=== PATIENT | female | born 1930 | race Asian ===

== ENCOUNTER 2018-08-07 09:46 | Day surgery (SDC) | payer MEDICARE, OTHER ==
[~2018-08-07] VITALS: Ht 149.9 cm; Wt 48.2 kg
[~2018-08-07 09:46] MED LIST: AMIO200T5 PO; AMLO-511 PO; APIX2.5T PO; ASPI-1182 PO; METHI5 PO; RINGERS SOLUTION,LACTATED 500 ML IV ONE; TERA5CAP12 PO; VALS1TAB79 PO
[2018-08-07] MEDS ORDERED: HYALURONATE SOD/CHONDROITIN SOD 0.5 ML VIAL IO ONE (09:47)
[2018-08-07] MEDS ORDERED: TETRACAINE HCL VISCOUS 0.5% 0.6 ML OPHTHALMIC SOLUTION OS ONE (09:47)
[2018-08-07] MEDS ORDERED: LIDOCAINE/PF 1% 2 ML VIAL IM ONE (09:47)
[2018-08-07] MEDS ORDERED: TETRACAINE HCL/PF 0.5% 4 ML OPHTHALMIC SOLUTION OS ONE (09:47)
[2018-08-07] MEDS ORDERED: POVIDONE-IODINE 10% 15 ML SOLUTION UD TP ONE (09:47)
[2018-08-07] MEDS ORDERED: BALANCED SALT 15 ML OPHTHALMIC IRRIG.SOLN OS ONE (09:47)
[2018-08-07] MEDS ORDERED: MIDAZOLAM HCL 2 MG/2 ML VIAL IVP ONE (12:00)
[2018-08-07] MEDS ORDERED: FentaNYL CITRATE-PF 100 MCG/2 ML VIAL IVP ONE (12:00)
[2018-08-07] MEDS ORDERED: PrednisoLONE ACETATE 1% 5 ML OPHTHALMIC SUSPENSION OD ONE (12:15)
== END 2018-08-07 13:15 | disposition home or self-care (01) ==
LOC: SURGERY 09:46
PROVIDERS: ATTEND Ophthalmology Glaucoma Specialist
DX: H11 Other disorders of conjunctiva (principal); I10 Essential (primary) hypertension; E78.00 Pure hypercholesterolemia, unspecified; E07.9 Disorder of thyroid, unspecified; I48.91 Unspecified atrial fibrillation; Z96.1 Presence of intraocular lens; Z98.41 Cataract extraction status, right eye; Z98.42 Cataract extraction status, left eye; Z79.01 Long term (current) use of anticoagulants; Z79.82 Long term (current) use of aspirin; Z79.899 Other long term (current) drug therapy
CPT/HCPCS: 68135; 93005; J2250; J3010; J3490; J7120